=== PATIENT | male | born 1990 | race Caucasian/White ===

== ENCOUNTER 2018-06-30 09:49 | Emergency (ER) | payer BC, SELFPAY ==
[2018-06-30] VITALS (28 sets, daily range): BP systolic 106–137; BP diastolic 71–96; PULSE 55–91; RESP 11–23; TEMP 36.8; O2SAT 96–99
[2018-06-30] MEDS: Normal Saline 1,000 ML 125 ML IV (10:00)
--- NOTE | 2018-06-30 10:09 | W.ED.GENAD ---
Discharge Plan Disposition Patient Disposition: HOME Condition: Improving Discharge Details Chief Complaint: Chest Pain Clinical Impression: Pleurisy Primary Care Provider: Laura Serrano ED Provider: Michoacano Montenegro Home Meds and New Rx's Prescriptions: New ibuprofen 800 mg tablet 800 mg PO TID PRN (Reason: pain) Qty: 14 RF: 0 Discharge Instructions Instructions: Pleurisy (ED) Additional Instructions: Home to rest. Follow-up with [facility] if not improved in 1 week's time Return to the emergency department for any acute concerns. Medical Decision Making 28-year-old male presents from home with his partner complaining of day 3 of a burning left-sided pleuritic chest discomfort with associated subjective fever chills and elevated heart rate. No syncope. No prolonged travel or immobilization. His exam is reassuring. He is afebrile with unremarkable vital signs. Differential diagnosis includes pleurisy, pericarditis, acute coronary syndrome, viral syndrome, must exclude pulmonary embolism as well. Patient IV access established, referred for chest x-ray, EKG, laboratory testing. Diagnostics are reassuring without any significant positive findings. Patient improved with Toradol. I do think this is most consistent with pleurisy and will treat him as such. Discussed home care as well as follow-up and return precautions with the patient and his significant other at the bedside prior to discharge. ECG Data Attestation: I personally reviewed and interpreted this ECG (s) as follows: Prior ECG tracings: not available for review Interpretation: Normal sinus rhythm, rate of 68, the QRS is narrow, there is J-point elevation throughout the precordium. HPI General Mode of arrival: ambulatory. Date/Time Provider Initiated Documentation: 06/30/18 10:00. Limitations to Documentation: no limitations. Information obtained by: patient and family. History of Present Illness 28 year old M presents to the emergency department with the chief complaint of Left chest pain, Quality is described as aching and constant, and is localized to the chest and left. Patient reports no radiation. Patient started experiencing this day(s) and it has been constant. No relieving factors improve symptom(s), Movement worsens symptoms . Patient notes chest pain and fever/chills. Patient did receive the following treatments prior to arrival, none HPI Narrative: Burning and aching left-sided chest pain that is worse with deep breathing. Associated with subjective fever and chills and elevated heart rate. No lower extremity pain or swelling. No recent prolonged travel or immobilization Related Data Home Medications Medication Instructions Recorded Confirmed ibuprofen 800 mg PO TID PRN #14 tab 06/30/18 Previous Rx's Medication Instructions Recorded ibuprofen 800 mg PO TID PRN #14 tab 06/30/18 Allergies Allergy/AdvReac Type Severity Reaction Status Date / Time No Known Allergies Allergy Unverified 06/30/18 10:04 General Stated Complaint: Chest Pain KAELA: 3 Review of Systems Review of Systems 8 systems reviewed and otherwise negative [facility] Social History Smoking/Tobacco Use Status: Current, status unknown Exam Narrative Exam Narrative: GEN: awake, alert, oriented 3. Pleasant, well groomed, interactive. HEAD: Normocephalic, atraumatic ENT: Mucous membranes moist, oropharynx unremarkable, External ear exam unremarkable EYES: PERRL, EOMI NECK: Full ROM, no MARICHUY, no menigismus CHEST/RESP: Left lateral chest wall tender, no rash,, clear to auscultation bilateral, no wheeze/rhonchi/rales CARDIOVASCULAR: RRR, no murmur, rub zainab. 2+ Rad pulse bilateral ABDOMEN: Soft, nontender, no mass. +Bowel sounds EXT: Full ROM, no edema, no rash Neuro: Grossly normal neurologic exam, conversant, interactive. Psych: Speech fluent, thoughts congruent, affect normal Course Vital Signs Temperature 36.8 C 06/30/18 09:59 Pulse 74 06/30/18 09:59 Respiratory Rate 17 06/30/18 09:59 Blood Pressure 137/90 06/30/18 09:59 Pulse Oximetry 96 06/30/18 09:59 Temperature 36.8 C 06/30/18 09:59 Temperature Source Skin 06/30/18 09:59 Pulse 74 06/30/18 09:59 Respiratory Rate 17 06/30/18 09:59 Respiratory Effort 06/30/18 10:05 Blood Pressure 137/90 06/30/18 09:59 Blood Pressure Position Sitting 06/30/18 09:59 Pulse Oximetry 96 06/30/18 09:59 Oxygen Delivery Method Room Air 06/30/18 09:59 Oxygen Flow Rate 0 06/30/18 09:59 Pain Level 3 06/30/18 09:59
--- NOTE | 2018-06-30 10:12 | ED.GENADUL_ITS ---
Discharge Plan Disposition Patient Disposition: HOME Condition: Improving Discharge Details Chief Complaint: Chest Pain Clinical Impression: Pleurisy Primary Care Provider: Laura Serrano ED Provider: Michoacano Monten[place]ro Home Meds and New Rx's Prescriptions: New ibuprofen 800 mg tablet 800 mg PO TID PRN (Reason: pain) Qty: 14 RF: 0 Discharge Instructions Instructions: Pleurisy (ED) Additional Instructions: Home to rest. Follow-up with [facility] if not improved in 1 week's time Return to the emergency department for any acute concerns. Medical Decision Making 28-year-old male presents from home with his partner complaining of day 3 of a burning left-sided pleuritic chest discomfort with associated subjective fever chills and elevated heart rate. No syncope. No prolonged travel or immobilization. His exam is reassuring. He is afebrile with unremarkable vital signs. Differential diagnosis includes pleurisy, pericarditis, acute coronary syndrome, viral syndrome, must exclude pulmonary embolism as well. Patient IV access established, referred for chest x-ray, EKG, laboratory testing. Diagnostics are reassuring without any significant positive findings. Patient improved with Toradol. I do think this is most consistent with pleurisy and will treat him as such. Discussed home care as well as follow-up and return precautions with the patient and his significant other at the bedside prior to discharge. ECG Data Attestation: I personally reviewed and interpreted this ECG (s) as follows: Prior ECG tracings: not available for review Interpretation: Normal sinus rhythm, rate of 68, the QRS is narrow, there is J- point elevation throughout the precordium. HPI General Mode of arrival: ambulatory . Date/Time Provider Initiated Documentation: 06/30/18 10:00 . Limitations to Documentation: no limitations . Information obtained by: patient and family . History of Present Illness 28 year old M presents to the emergency department with the chief complaint of Lef t chest pain, Quality is described as aching and constant, and is localized to the chest and left. Patient reports no radiation. Patient started experiencing this day(s) and it has been constant. No relieving factors improve symptom(s), Movement worsens symptoms . Patient notes chest pain and fever/chills. Patient did receive the following treatments prior to arrival, none HPI Narrative: Burning and aching left-sided chest pain that is worse with deep breathing. Associated with subjective fever and chills and elevated heart rate. No lower extremity pain or swelling. No recent prolonged travel or immobilization Related Data Home Medications Medication Instructions Recorded Confirmed ibuprofen 800 mg PO TID PRN #14 tab 06/30/18 Previous Rx's Medication Instructions Recorded ibuprofen 800 mg PO TID PRN #14 tab 06/30/18 Allergies Allergy/AdvReac Type Severity Reaction Status Date / Time No Known Allergies Allergy Unverified 06/30/18 10:04 General Stated Complaint: Chest Pain KAELA: 3 Review of Systems Review of Systems 8 systems reviewed and otherwise negative [facility] Social History Smoking/Tobacco Use Status: Current, status unknown Exam Narrative Exam Narrative: GEN: awake, alert, oriented 3. Pleasant, well groomed, interactive. HEAD: Normocephalic, atraumatic ENT: Mucous membranes moist, oropharynx unremarkable, External ear exam unremarkable EYES: PERRL, EOMI NECK: Full ROM, no MARICHUY, no menigismus CHEST/RESP: Left lateral chest wall tender, no rash,, clear to auscultation bilateral, no wheeze/rhonchi/rales CARDIOVASCULAR: RRR, no murmur, rub zainab. 2+ Rad pulse bilateral ABDOMEN: Soft, nontender, no mass. +Bowel sounds EXT: Full ROM, no edema, no rash Neuro: Grossly normal neurologic exam, conversant, interactive. Psych: Speech fluent, thoughts congruent, affect normal Course Vital Signs Temperature 36.8 C 06/30/18 09:59 Pulse 74 06/30/18 09:59 Respiratory Rate 17 06/30/18 09:59 Blood Pressure 137/90 06/30/18 09:59 Pulse Oximetry 96 06/30/18 09:59 Temperature 36.8 C 06/30/18 09:59 Temperature Source Skin 06/30/18 09:59 Pulse 74 06/30/18 09:59 Respiratory Rate 17 06/30/18 09:59 Respiratory Effort 06/30/18 10:05 Blood Pressure 137/90 06/30/18 09:59 Blood Pressure Position Sitting 06/30/18 09:59 Pulse Oximetry 96 06/30/18 09:59 Oxygen Delivery Method Room Air 06/30/18 09:59 Oxygen Flow Rate 0 06/30/18 09:59 Pain Level 3 06/30/18 09:59
[2018-06-30] MEDS: Ketorolac 30 MG/ML VIAL IVP (10:52)
[2018-06-30 11:10] LABS: Absolute Basophil Count 0.01 k/cumm (0.0-0.2); Absolute Eosinophil Count 0.26 k/cumm (0.0-0.7); Absolute Lymphocyte Count 1.51 k/cumm (1.2-3.4); Absolute Monocyte Count 0.67 k/cumm (0.11-0.7); Basophils % 0.2; Eosinophils % 4.7; HCT 44.1 % (40.0-50.0); HGB 15.6 g/dL (13.5-17.5); Lymphocytes % 27.2; Mean Corp. HGB Concentration 35.4 g/dL (32.0-36.0); Mean Corpuscular Hemoglobin 31.3 pg (27.0-33.0); Mean Corpuscular Volume 88.4 fL (80-95); Mean Platelet Volume 9.7 fL (8.0-11.0); Monocytes % 12.1; Neutrophils % 55.8; Platelet Count 184 x1000/uL (130-400); RBC 4.99 m/cumm (4.50-6.00); RBC Distribution Width 11.2 % (11.8-14.1); White Blood Cell Count 5.55 k/cumm (4.4-10.8)
--- NOTE | 2018-06-30 11:16 | DI.RAD_ITS ---
SYMPTOM/DIAGNOSIS: LT PLEURITIC CHEST PAIN PA AND LATERAL CHEST: The heart size is normal. The lungs are clear. No pneumothorax, infiltrate or effusion is seen. No rib or spine fracture is identified. IMPRESSION: Negative chest xray.
[2018-06-30 11:22] LABS: ALT 68 U/L (12-78); AST 40 U/L (15-37); Alkaline Phosphatase 47 U/L (46-116); Anion Gap 9.4 mmol/L (3-11); BUN 18 mg/dL (7-18); Bilirubin, Total 0.6 mg/dL (0.2-1.0); C-Reactive Protein 0.06 mg/dL (0.0-0.3); CO2 26.6 mmol/L (21.0-32.0); CREATININE 1.05 mg/dL (0.70-1.30); Chloride 103 mmol/L (98-107); Glucose 99 mg/dL (70-100); Magnesium 2.1 mg/dL (1.8-2.4); Potassium 3.8 mmol/L (3.5-5.1); Sodium 139 mmol/L (136-145); Total Protein 7.4 g/dL (6.4-8.2); Troponin I 0.02 ng/mL (0.00-0.06)
[2018-06-30 11:45] LABS: D-Dimer 109 ng/mlFEU (<500)
--- NOTE | 2018-06-30 12:38 | DI.VRAD_ITS ---
EXAM: XR Chest, 2 Views EXAM DATE/TIME: 06/30/2018 11:17 AM CLINICAL HISTORY: 28 years old, male; Pain; Chest pain; Type not specified; Patient HX: L ant-lat pleuritic pain. No known trauma TECHNIQUE: XR of the chest, 2 views. COMPARISON: No relevant prior studies available. FINDINGS: Lungs: Unremarkable. No consolidation. Pleural space: Unremarkable. No pleural effusion. No pneumothorax. Heart/Mediastinum: Unremarkable. No cardiomegaly. Bones/joints: Unremarkable. IMPRESSION: No evidence for acute abnormality in the chest. COMMENT: Preliminary interpretation is based on receipt of 2 image(s). A final report will be issued subsequently. Dictated and Authenticated by: Gracie Bailey MD. Ordering:NESTOR Ríos MD
== END 2018-06-30 13:08 | disposition home or self-care (01) ==
PROVIDERS: Emergency Provider Emergency Medicine; PCP Nurse Practitioner
DX: R09.1 Pleurisy (principal)
CPT/HCPCS: 36415; 80053; 93005; 96361; 96374; 99285; 71046; 83735; 84484; 85025; 85379; 86140; 93010; 99284; J1885

== ENCOUNTER 2018-10-06 17:05 | Outpatient (REF) | payer BC, SELFPAY ==
[2018-10-06 20:53] LABS: Bilirubin Negative (Negative); Blood Negative (Negative); Clarity Clear; Glucose Negative (Negative); Ketones Negative (Negative); Leukocyte Esterase Negative (Negative); Nitrite Negative (Negative); Specific Gravity 1.025 (1.005-1.025); Urobilinogen 0.2 EU/dL (Up TO 0.2); pH 6.5 (5-8)
== END 2018-10-06 17:25 ==
LOC: NCHCN 17:05
PROVIDERS: PCP Nurse Practitioner; Visit Provider Nurse Practitioner Family
DX: R39.11 Hesitancy of micturition (principal)
CPT/HCPCS: 81003

== ENCOUNTER 2018-10-29 12:10 | Outpatient (REF) | payer BC, SELFPAY ==
[2018-10-29 13:26] LABS: HCT 44.8 % (40.0-50.0); HGB 15.6 g/dL (13.5-17.5); Mean Corp. HGB Concentration 34.8 g/dL (32.0-36.0); Mean Corpuscular Volume 89.1 fL (80-95); Mean Platelet Volume 11.2 fL (8.0-11.0); Platelet Count 192 x1000/uL (130-400); RBC 5.03 m/cumm (4.50-6.00); RBC Distribution Width 11.5 % (11.8-14.1); White Blood Cell Count 4.86 k/cumm (4.4-10.8)
[2018-10-29 13:52] LABS: Bilirubin Negative (Negative); Blood Negative (Negative); Clarity Clear; Glucose Negative (Negative); Ketones Negative (Negative); Leukocyte Esterase Negative (Negative); Nitrite Negative (Negative); Specific Gravity 1.015 (1.005-1.025); Urobilinogen 0.2 EU/dL (Up TO 0.2); pH 6.5 (5-8)
== END 2018-10-29 12:30 ==
LOC: NCHCN 12:10
PROVIDERS: PCP Nurse Practitioner; Visit Provider Nurse Practitioner Family
DX: K59.00 Constipation, unspecified (principal); N50.819 Testicular pain, unspecified; Z12.5 Encounter for screening for malignant neoplasm of prostate; R39.11 Hesitancy of micturition
CPT/HCPCS: 84153; 85027; 81003

== ENCOUNTER 2019-12-13 10:32 | Outpatient (REF) | payer BC, SELFPAY ==
[2019-12-15 10:15] LABS: Lyme Ab w Rflx to Lyme Confirm Negative (Negative)
[2019-12-16 01:27] LABS: Anaplasma phagocytophilum Negative (Negative); B. miyamotoi PCR Negative (Negative); Babesia divergens/MO-1 Negative (Negative); Babesia duncani Negative (Negative); Babesia microti Negative (Negative); Ehrlichia chaffeensis Negative (Negative); Ehrlichia ewingii/canis Negative (Negative); Ehrlichia muris eauclairensis Negative (Negative)
== END 2019-12-13 10:52 ==
LOC: NCHCN 10:32
PROVIDERS: PCP Nurse Practitioner; Visit Provider Family Medicine
DX: W57.XXXA Bitten or stung by nonvenomous insect and other nonvenomous arthropods, initial encounter (principal); T14.8XXA Other injury of unspecified body region, initial encounter
CPT/HCPCS: 87798; 86618

== ENCOUNTER 2024-02-27 13:53 | Outpatient (CLI) | payer SELFPAY ==
[2024-03-01 21:44] LABS: Anaplasma phagocytophilum Negative (Negative); B. miyamotoi PCR Negative (Negative); Babesia divergens/MO-1 Negative (Negative); Babesia duncani Negative (Negative); Babesia microti Negative (Negative); Ehrlichia chaffeensis Negative (Negative); Ehrlichia ewingii/canis Negative (Negative); Ehrlichia muris eauclairensis Negative (Negative)
== END 2024-02-27 13:54 | disposition home or self-care (01) ==
LOC: LBO 13:53
PROVIDERS: PCP Nurse Practitioner Family; Visit Provider Nurse Practitioner Family
DX: R53.83 Other fatigue (principal)
CPT/HCPCS: 36415; 87798

== ENCOUNTER 2024-03-10 15:06 | Outpatient (REF) | payer SELFPAY ==
[2024-03-11 09:43] LABS: Lyme Ab w Rflx to Lyme Confirm Negative (Negative)
== END 2024-03-10 15:07 | disposition home or self-care (01) ==
LOC: NCHCN 15:06
PROVIDERS: PCP Nurse Practitioner Family; Visit Provider Nurse Practitioner Family
DX: T14.8XXA Other injury of unspecified body region, initial encounter (principal); T63.481A Toxic effect of venom of other arthropod, accidental (unintentional), initial encounter; Z11.8 Encounter for screening for other infectious and parasitic diseases
CPT/HCPCS: 86618